=== PATIENT | male | born 1955 | race Asian ===

== ENCOUNTER 2020-09-09 18:39 | Emergency (ER) | payer MEDICARE, MEDICAID ==
[~2020-09-09] VITALS: Ht 157.5 cm; Wt 54.4 kg
[2020-09-09 18:46] VITALS: BP 180/108
[2020-09-09] MEDS ORDERED: VALA100026 PO (18:54)
[2020-09-09] MEDS ORDERED: PRED20TA PO (18:54)
--- NOTE | 2020-09-09 18:59 | NUR ---
Patient discharged to home in stable condition. Written and verbal after care instructions given. Patient verbalizes understanding of instruction.
== END 2020-09-09 18:59 | disposition home or self-care (01) ==
LOC: ER 18:43
DX: B02.9 Zoster without complications (principal); M19.90 Unspecified osteoarthritis, unspecified site